=== PATIENT | male | born 1980 | race American Indian/Alaskan Native ===

== ENCOUNTER 2018-11-30 00:14 | Emergency (ER) | payer OTHER ==
[2018-11-30] MEDS ORDERED: PERCOCET 5/325 PO ONE (03:12)
--- NOTE | 2018-11-30 03:58 | Emergency Department Report ---
Abscess Boil HPI - HPI Chief Complaint: Skin/Abscess/Foreign Body Stated Complaint: BOIL ON LOWER BACK,FEVER,CHILLS Time Seen by Provider: 11/30/18 03:12 Duration: 3 Days Location: Sacral/Pilonidal Severity: Moderate History: Yes Fever, Yes Pain, No Purulent Drainage, No Numbness, No Foreign Body, No Previous History, No Insect Bite HPI: 38-year-old -[place] male presents to the emergency room for boil on the lower back with fever and chills 2 days. Patient reports he is taking Motrin 802 hours ago prior to arrival. He denies any past medical history no surgical history currently takes no medications on a daily basis and has no known drug allergies. Home Medications: Previous Rx's Medication Instructions Recorded Last Taken Type Cephalexin [Keflex] 500 mg PO BID #20 capsule 11/30/18 Unknown Rx Ibuprofen [Motrin 800 MG tab] 800 mg PO Q8HR PRN #30 tablet 11/30/18 Unknown Rx Sulfamethoxazole/Trimethoprim 1 each PO BID #20 tablet 11/30/18 Unknown Rx [Bactrim DS TAB] Allergies/Adverse Reactions: Allergies Allergy/AdvReac Type Severity Reaction Status Date / Time No Known Allergies Allergy Unverified 11/30/18 00:19 ED Review of Systems ROS: Stated complaint: BOIL ON LOWER BACK,FEVER,CHILLS Other details as noted in HPI Comment: All other systems reviewed and negative ED Past Medical Hx - Past Medical History Previous Medical History?: No - Surgical History Past Surgical History?: No - Social History Smoking Status: Current Every Day Smoker Substance Use Type: Alcohol - Medications Home Medications: Home Medications Medication Instructions Recorded Confirmed Last Taken Type Cephalexin [Keflex] 500 mg PO BID #20 capsule 11/30/18 Unknown Rx Ibuprofen [Motrin 800 MG tab] 800 mg PO Q8HR PRN #30 tablet 11/30/18 Unknown Rx Sulfamethoxazole/Trimethoprim 1 each PO BID #20 tablet 11/30/18 Unknown Rx [Bactrim DS TAB] ED Abscess Boil Physical Exam - Exam General: Vital signs noted. No distress. Alert and acting appropriately. Size: 4 cm Exam: Yes Tenderness, Yes Fluctuance, Yes Normal Neurologic Exam, Yes Normal Circulation, No Surrounding Cellulites/Erythema, No Lymphangitis, No Crepitation, No Heart Murmur I & D Note - I & D Note I & D Note: DATE OF PROCEDURE: 11/30/2018. PREOPERATIVE DIAGNOSES: 1.soft tissue infection anterior gluteal cleft. POSTOPERATIVE DIAGNOSES: 1. 2. .........soft tissue infection. Infection appeared to be contained to subcutaneous tissue and there was no evidence of necrotizing soft tissue infection including myonecrosis. OPERATION PERFORMED: Incision and drainage of ..... soft tissue abscess. Provider: Angelo Adame PA-C. ANESTHESIA: Local. DESCRIPTION OF PROCEDURE: The patient was prepped and draped. Seropurulent, somewhat bloody fluid was noted. The infection appeared contained to a golf bal l-sized area in the subcutaneous tissues above the fascia. There was no evidence of myonecrosis, penetration of the fascia or significant extent along the fascia of the infection. We cleaned the area with Betadine . Dry dressings were applied. The patient appeared to tolerate the procedure well. ED Course Vital Signs 11/30/18 00:17 Temperature 98.8 F Pulse Rate 95 H Respiratory 18 Rate Blood Pressure 149/91 O2 Sat by Pulse 98 Oximetry Critical care attestation.: If time is entered above; I have spent that time in minutes in the direct care of this critically ill patient, excluding procedure time. ED Disposition Clinical Impression: Pilonidal abscess of blair cleft Disposition: [id number] TO HOME OR SELFCARE Is pt being admited?: No Does the pt Need Aspirin: No Condition: Stable Instructions: Abscess Incision and Drainage (ED), Abscess (ED) Additional Instructions: Complete antibiotics as prescribed pain medication as needed. Try to use dial antibacterial soap today in that area. If the symptoms persist or gets worse follow up with her primary care provider Prescriptions: Sulfamethoxazole/Trimethoprim [Bactrim DS TAB] 1 each PO BID #20 tablet Cephalexin [Keflex] 500 mg PO BID #20 capsule Ibuprofen [Motrin 800 MG tab] 800 mg PO Q8HR PRN #30 tablet PRN Reason: Pain , Severe (7-10) Referrals: KRISH DE LA CRUZ MD [Primary Care Provider] - 3-5 Days Forms: Work/School Release Form(ED), Accompanied Note
[2018-11-30 05:50] VITALS: BP 124/78
== END 2018-11-30 04:30 | disposition home or self-care (01) ==
LOC: ED 00:14
DX: L05.01 Pilonidal cyst with abscess (principal); F17.200 Nicotine dependence, unspecified, uncomplicated